=== PATIENT | female | born 1960 | race Caucasian/White ===

== ENCOUNTER 2017-02-10 10:44 | Emergency (ER) | payer BC ==
[~2017-02-10 10:44] MED LIST: AMITRIPTYLINE H10 M1 PO; BREO ELLIPTA 11 EAC1 IH; FLONASE ALLERG9.9 ML; HYDROCODON-ACE1 EA16 PO; IBUPROFEN800 M1 PO; METRONIDAZOLE500 M3 PO; MINOCIN100 M2 PO; PRINIVIL10 M1 PO; PROAIR RESPICL90 MCG INH; VITAMIN D2000 UNIT PO; ZYRTEC10 M7 PO
[2017-02-10] MEDS ORDERED: MELOXICAM15 M1 PO (12:02)
[2017-02-10] MEDS ORDERED: [UNRECOGNIZED DRUG - OTHER] TP (12:03)
[2017-02-10] MEDS ORDERED: FLUTICASONE PRO16 G1 (12:03)
[2017-02-10] MEDS ORDERED: CIPRO500 M2 PO (12:04)
[2017-02-10 12:37] LABS: URINE BILIRUBIN NEGATIVE (NEG); URINE BLOOD NEGATIVE (NEG); URINE GLUCOSE (UA) NEGATIVE (NEG); URINE KETONE NEGATIVE (NEG); URINE LEUKOCYTE ESTERASE POSITIVE (NEG); URINE NITRITE NEGATIVE (NEG); URINE PROTEIN NEGATIVE (NEG); URINE SPECIFIC GRAVITY 1.005 (1.003-1.030)
[2017-02-10 12:43] LABS: URINE APPEARANCE CLEAR; URINE COLOR PALE YELLOW
[2017-02-10 12:50] LABS: BASO % 0.2 % (0-2); EOS % 0.6 % (0-7); EOSINOPHIL ABSOLUTE COUNT 0.1 tho/cmm (0.0-0.7); HCT-HEMATOCRIT 38.7 % (34.0-49.0); HGB-HEMOGLOBIN 13.4 gm/dl (12.0-15.5); IMMATURE GRANULOCYTES ABSOLUTE 0.02 tho/cmm (0-0.03); IMMATURE GRANULOCYTES PERCENT 0.2 % (0-0.3); LYMPH % 23.4 % (20-45); LYMPH ABSOLUTE COUNT 2.3 tho/cmm (0.8-4.5); MCH (MEAN CORPUSCULAR HGB) 31.5 pg (28.0-32.0); MCHC MEAN CORPUSCULAR HGB CONC 34.6 % (32.0-36.0); MCV (MEAN CELL VOLUME) 91.1 fl (82.0-96.0); MEAN PLATELET VOLUME 10.8 cmc (9.4-12.4); MONO % 10.6 % (0-12); NEUTROPHIL ABSOLUTE COUNT 6.4 tho/cmm (1.6-8.0); NEUTROPHIL-AUTOMATED 6.4 tho/cmm (1.6-8.0); PLATELET COUNT 278 tho/cmm (150-450); RED BLOOD COUNT 4.25 mil/cmm (4.00-5.20); RED CELL DISTRIBUTION WIDTH 12.4 % (12.4-16.4); WHITE BLOOD COUNT 9.8 tho/cmm (4.0-10.0)
[2017-02-10 13:03] LABS: URINE EPITHELIAL CELLS 0-1 /[HPF] (0-10); URINE RBC 0 /[HPF] (0-5); URINE WBC 0-1 /[HPF] (0-5)
[2017-02-10 13:06] LABS: ALBUMIN 3.9 g/dl (3.5-5.0); ALKALINE PHOSPHATASE 95 U/L (33-138); ALT/SGPT 23 U/L (12-78); ANION GAP 13 mmol/L (0-20); AST/SGOT 20 U/L (10-40); BILIRUBIN,TOTAL 0.4 mg/dl (0-1.5); BLOOD UREA NITROGEN 9 mg/dl (6-24); C-REACTIVE PROTEIN 3.4 mg/dl (0-0.9); CALCIUM 8.7 mg/dl (8.5-10.5); CARBON DIOXIDE-VENOUS 23 mmol/L (22-32); CHLORIDE 105 mmol/l (96-110); CREATININE 0.81 mg/dl (0.50-1.10); GLUCOSE 102 mg/dL (70-110); LIPASE 88 U/L (73-393); POTASSIUM 3.8 mmol/L (3.7-5.1); SODIUM 137 mmol/L (135-145); eGFR VALUE FOR BLACK >90 mL/Min
[2017-02-10 13:23] LABS: PREGNANCY-SERUM NEGATIVE (NEGATIVE)
[2017-02-10] MEDS ORDERED: LEVAQUIN500 M1 PO (15:05)
[2017-02-10] MEDS ORDERED: PERCOCET 5-3251 EACH PO (15:05)
== END 2017-02-10 15:39 ==
LOC: EDMED 10:44
PROVIDERS: Emergency Medicine
DX: K57.90 Diverticulosis of intestine, part unspecified, without perforation or abscess without bleeding (principal); I10 Essential (primary) hypertension; G47.33 Obstructive sleep apnea (adult) (pediatric); J45.909 Unspecified asthma, uncomplicated; Z90.49 Acquired absence of other specified parts of digestive tract; Z90.89 Acquired absence of other organs; Z79.51 Long term (current) use of inhaled steroids; Z79.899 Other long term (current) drug therapy
CPT/HCPCS: C1751; J1885; J2405; J7030; Q9967